=== PATIENT | male | born 1990 | race Native Hawaiian/Other Pacific Islander ===

== ENCOUNTER 2020-03-20 16:52 | Emergency (ER) | payer OTHER ==
[~2020-03-20] VITALS: Ht 165.1 cm; Wt 63.5 kg
[2020-03-20 20:01] VITALS: BP 121/62; TEMP 98.1
== END 2020-03-20 20:04 | disposition home or self-care (01) ==
LOC: ED 16:52
DX: S00.561A Insect bite (nonvenomous) of lip, initial encounter (principal); L03.818 Cellulitis of other sites; W57.XXXA Bitten or stung by nonvenomous insect and other nonvenomous arthropods, initial encounter; Y92.89 Other specified places as the place of occurrence of the external cause
CPT/HCPCS: 96372; 99283; J2930